=== PATIENT | male | born 1990 | race American Indian/Alaskan Native ===

== ENCOUNTER 2018-11-06 08:51 | Emergency (ER) | payer OTHER ==
[2018-11-06 08:58] VITALS: BP 157/93
[2018-11-06] MEDS ORDERED: TORADOL IM ONE (09:02)
[2018-11-06] MEDS ORDERED: DELTASONE PO ONE (09:02)
--- NOTE | 2018-11-06 09:08 | Emergency Department Report ---
HPI - General Chief Complaint: Extremity Injury, Lower Time Seen by Provider: 11/06/18 09:02 - HPI HPI: Patient is a pleasant 28-year-old male who comes to the ER complaining of right foot pain. He states that the pain is just like when he had gout in the past. He denies any trauma or injury to the ankle. He states that even the lightest movement of the sheet over his foot causes pain. Patient's ambulation is limited by the pain. Patient denies any fever, shortness of breath or chest pain. Vital signs are stable. Patient is afebrile. ED Past Medical Hx - Past Medical History Hx Asthma: Yes Additional medical history: gout - Surgical History Past Surgical History?: No - Family History Family history: no significant - Social History Smoking Status: Never Smoker Substance Use Type: None - Medications Home Medications: Home Medications Medication Instructions Recorded Confirmed Last Taken Type Colchicine 0.6 mg PO DAILY #11 capsule 11/06/18 Unknown Rx Naproxen [Naprosyn] 500 mg PO BID PRN #20 tablet 11/06/18 Unknown Rx predniSONE [Deltasone] 20 mg PO DAILY #5 tablet 11/06/18 Unknown Rx ED Review of Systems ROS: Stated complaint: RT ANKLE INJURY Other details as noted in HPI Comment: All other systems reviewed and negative Physical Exam - Physical Exam Vital Signs: Vital Signs 11/06/18 08:51 Temperature 98.2 F Pulse Rate 102 H Respiratory 20 Rate Blood Pressure 157/93 O2 Sat by Pulse 98 Oximetry Physical Exam: WDWN patient in NAD VS per RN flow sheet Alert and oriented to person, place and time. S1-S2. No S3 or S4. No systolic or diastolic murmur. No JVD. No pitting edema. Lungs clear to auscultation bilaterally anteriorly and posteriorly. Abdomen soft nontender bowel sounds x4 Moves all extremities well. Mood and affect appropriate. l ankle mild swelling and redness dp and pt plus 2 full rom BLE ED Course Vital Signs 11/06/18 08:51 Temperature 98.2 F Pulse Rate 102 H Respiratory 20 Rate Blood Pressure 157/93 O2 Sat by Pulse 98 Oximetry ED Medical Decision Making - Medical Decision Making pt has no mechanism or injury for fracture or sprain he stated he has history of gout and this is the same he drank beer yesterday for holiday and thinks that may be the trigger Vital Signs 11/06/18 08:51 Temperature 98.2 F Pulse Rate 102 H Respiratory 20 Rate Blood Pressure 157/93 O2 Sat by Pulse 98 Oximetry no home meds medicated with prednisone and toradol will dc home with dc plan of care and pcp follow up - Differential Diagnosis sprain/fracture/gout Critical care attestation.: If time is entered above; I have spent that time in minutes in the direct care of this critically ill patient, excluding procedure time. ED Disposition Clinical Impression: Foot pain, History of gout Disposition: DC-01 TO HOME OR SELFCARE Is pt being admited?: No Does the pt Need Aspirin: No Condition: Stable Instructions: Arthralgia (ED) Additional Instructions: rest alternated warm and cold compresses meds as ordered follow up with pcp referral below diet for gout. see below Prescriptions: Colchicine 0.6 mg PO DAILY #11 capsule predniSONE [Deltasone] 20 mg PO DAILY #5 tablet Naproxen [Naprosyn] 500 mg PO BID PRN #20 tablet PRN Reason: Pain Referrals: ISSAC BELLO MD [Staff Physician] - 3-5 Days Time of Disposition: 09:05
== END 2018-11-06 09:28 | disposition home or self-care (01) ==
LOC: ED 08:51
DX: M10.9 Gout, unspecified (principal); J45.909 Unspecified asthma, uncomplicated; Z79.899 Other long term (current) drug therapy
CPT/HCPCS: 96372; 99282; J1885; J7512

== ENCOUNTER 2019-03-01 05:53 | Emergency (ER) | payer SELFPAY ==
[2019-03-01 05:59] VITALS: BP 151/97
[2019-03-01] MEDS ORDERED: KETOROLAC 60 MG/2 ML INJ IM ONE (06:09)
--- NOTE | 2019-03-01 06:17 | Emergency Department Report ---
ED General Adult HPI - General Chief complaint: Extremity Injury, Lower Stated complaint: GOUT FLARE UP Time Seen by Provider: 03/01/19 06:09 Source: patient Mode of arrival: Ambulatory Limitations: No Limitations - History of Present Illness Initial comments: 28-year-old -[place] male patient with history of asthma and gout presents with complaints of left ankle pain due to gout last night. He states he often gets gout in his ankles. He denies any injury, fever/chills, shortness of breath, chest pain. Shouldn't states he ran out of his daily gout prevention medications 2 months ago. -: Sudden Location: lower extremity Severity scale (0 -10): 10 Quality: sharp, constant Consistency: constant Improves with: immobilization Associated Symptoms: denies other symptoms Treatments Prior to Arrival: none - Related Data Previous Rx's Medication Instructions Recorded Last Taken Type Colchicine 0.6 mg PO DAILY #11 capsule 03/01/19 Unknown Rx Naproxen [Naprosyn TAB] 500 mg PO BID PRN #20 tablet 03/01/19 Unknown Rx predniSONE [Deltasone] 20 mg PO DAILY #5 tablet 03/01/19 Unknown Rx Allergies Allergy/AdvReac Type Severity Reaction Status Date / Time No Known Allergies Allergy Verified 11/06/18 08:52 ED Review of Systems ROS: Stated complaint: GOUT FLARE UP Other details as noted in HPI Comment: All other systems reviewed and negative Constitutional: denies: chills, fever Musculoskeletal: joint swelling, arthralgia ED Past Medical Hx - Past Medical History Previous Medical History?: No Hx Asthma: Yes Additional medical history: gout - Surgical History Past Surgical History?: No - Social History Smoking Status: Never Smoker Substance Use Type: None - Medications Home Medications: Home Medications Medication Instructions Recorded Confirmed Last Taken Type Colchicine 0.6 mg PO DAILY #11 capsule 03/01/19 Unknown Rx Naproxen [Naprosyn TAB] 500 mg PO BID PRN #20 tablet 03/01/19 Unknown Rx predniSONE [Deltasone] 20 mg PO DAILY #5 tablet 03/01/19 Unknown Rx ED Physical Exam - General Limitations: No Limitations General appearance: alert, in no apparent distress - Head Head exam: Present: atraumatic, normocephalic - Eye Eye exam: Present: normal appearance. Absent: scleral icterus - Respiratory Respiratory exam: Present: normal lung sounds bilaterally. Absent: respiratory distress - Cardiovascular Cardiovascular Exam: Present: regular rate, normal rhythm - Rectal Rectal exam: Present: deferred - Extremities Exam Extremities exam: Present: joint swelling (left ankle with mild erythema and significant tenderness to palpation, limited range of motion of left ankle). Absent: calf tenderness - Neurological Exam Neurological exam: Present: alert, oriented X3 - Psychiatric Psychiatric exam: Present: normal affect, normal mood ED Course Vital Signs 03/01/19 05:57 Temperature 97.7 F Pulse Rate 116 H Respiratory 18 Rate Blood Pressure 151/97 O2 Sat by Pulse 96 Oximetry ED Medical Decision Making - Medical Decision Making Patient here with left ankle pain due to gout. Patient has been seen here in past for gout attacks in his ankle. Denies any fever, shortness of breath, chest pain. Patient states that this feels like his gout. Toradol given which patient states normally works well. Patient's heart rate noted to be elevatedalso noted to be elevated during prior visits. Mild elevation of heart rate likely secondary to pain. Heart rate now 101 on recheck. Patient's blood pressure elevated at 151/97. Recommend follow-up with primary care concerning gout and elevated blood pressure. Strict return precautions were discussed in detail with patient who states understanding. Critical care attestation.: If time is entered above; I have spent that time in minutes in the direct care of this critically ill patient, excluding procedure time. ED Disposition Clinical Impression: Gout attack Qualifiers: Gout site: ankle Gout etiology: idiopathic Laterality: left Qualified Code(s): M10.072 - Idiopathic gout, left ankle and foot Disposition: TO HOME OR SELFCARE Is pt being admited?: No Condition: Stable Instructions: Acute Gouty Arthritis (ED) Additional Instructions: He is follow-up with your primary care provider in 3-5 days Prescriptions: Colchicine 0.6 mg PO DAILY #11 capsule predniSONE [Deltasone] 20 mg PO DAILY #5 tablet Naproxen [Naprosyn TAB] 500 mg PO BID PRN #20 tablet PRN Reason: Pain
== END 2019-03-01 06:43 | disposition home or self-care (01) ==
LOC: ED 05:53
DX: M10.9 Gout, unspecified (principal); J45.909 Unspecified asthma, uncomplicated; Z79.899 Other long term (current) drug therapy
CPT/HCPCS: 96372; 99283; J1885